=== PATIENT | female | born 1970 | race Caucasian/White ===

== ENCOUNTER → 2017-01-20 | Outpatient (CLI) | payer OTHER ==
[~2017-01-20] MED LIST: THYR15 PO; ZITH250T PO
[2017-01-20 09:43] LABS: ALKALINE PHOSPHATASE 66 U/L (45-117); ALT (GPT) 14 U/L (10-53); ANION GAP 7 MEQ/L (5-15); AST (GOT) 13 U/L (15-37); BICARBONATE 25.2 MEQ/L (21.0-32.0); BLOOD UREA NITROGEN 17 MG/DL (7-18); CHLORIDE 108 MEQ/L (98-107); FREE T3 2.64 PG/ML (2.18-3.98); FREE T4 0.85 NG/DL (0.76-1.46); GLOMERULAR FILTRATION RATE 70 ML/MIN (>89); GLUCOSE,FASTING 121 MG/DL (74-99); HDL CHOLESTEROL 83.1 MG/DL (40.0-60.0); LDL CHOLESTEROL 149 MG/DL (0-99); SODIUM (NA) 140 MEQ/L (136-145); TOTAL BILIRUBIN ADULT 0.4 MG/DL (0.2-1.0)
[2017-01-20 13:41] LABS: RHEUMATOID FACTOR TRIGGER LESS THAN 10.0 IU/ML (0.0-14.9)
[2017-01-20 14:47] LABS: HEMOGLOBIN A1a 0.7 %; HEMOGLOBIN A1b 1.5 %; HEMOGLOBIN Ao 85.4 %; HEMOGLOBIN LA1C 2.2 %; HEMOGLOBIN P3 3.7 %
== END ==
LOC: CLAB 08:16
PROVIDERS: ATTEND Allergy & Immunology
DX: E78.2 Mixed hyperlipidemia (principal); I25.83 Coronary atherosclerosis due to lipid rich plaque; R94.6 Abnormal results of thyroid function studies; M32.19 Other organ or system involvement in systemic lupus erythematosus; E08.65 Diabetes mellitus due to underlying condition with hyperglycemia
CPT/HCPCS: 36415; 80053; 80061; 83036; 83090; 84439; 84443; 84481; 85652; 86038; 86141; 86430

== ENCOUNTER → 2017-06-19 | Outpatient (CLI) | payer OTHER ==
[2017-06-19 08:33] LABS: HEMATOCRIT 38.6 % (35.0-46.0); MEAN CELL VOLUME 91.1 FL (80.0-100.0); MEAN CORPUSCULAR HEMOGLOBIN 31.6 PG (27.0-34.0); MEAN CORPUSCULAR HGB CONC 34.6 % (32.0-36.0); PLATELET COUNT 272 TH/MM3 (150-450); RED BLOOD COUNT 4.24 MIL/MM3 (4.00-5.30); RED CELL DISTRIBUTION WIDTH 12.7 % (11.6-17.2); REVIEW FLAG FINAL; WHITE BLOOD COUNT 4.4 TH/MM3 (4.0-11.0)
[2017-06-19 08:59] LABS: ANION GAP 6 MEQ/L (5-15); AST (GOT) 13 U/L (15-37); BICARBONATE 27.4 MEQ/L (21.0-32.0); BLOOD UREA NITROGEN 12 MG/DL (7-18); CHLORIDE 106 MEQ/L (98-107); GLOMERULAR FILTRATION RATE 75 ML/MIN (>89); GLUCOSE,FASTING 107 MG/DL (74-99); SODIUM (NA) 139 MEQ/L (136-145)
[2017-06-19 09:10] LABS: ALKALINE PHOSPHATASE 78 U/L (45-117); ALT (GPT) 13 U/L (10-53); FREE T4 0.87 NG/DL (0.76-1.46); HDL CHOLESTEROL 77.3 MG/DL (40.0-60.0); LDL CHOLESTEROL 151 MG/DL (0-99); TOTAL BILIRUBIN ADULT 0.3 MG/DL (0.2-1.0)
== END ==
LOC: CLAB 08:06
PROVIDERS: ATTEND Allergy & Immunology
DX: E06.3 Autoimmune thyroiditis (principal); E78.2 Mixed hyperlipidemia; R94.6 Abnormal results of thyroid function studies; M32.19 Other organ or system involvement in systemic lupus erythematosus
CPT/HCPCS: 36415; 80053; 80061; 84439; 84443; 84481; 85027

== ENCOUNTER → 2017-10-24 | Outpatient (CLI) | payer OTHER ==
[2017-10-24 10:30] LABS: ALBUMIN 3.9 GM/DL (3.4-5.0); AST (GOT) 14 U/L (15-37); BICARBONATE 26.8 MEQ/L (21.0-32.0); BLOOD UREA NITROGEN 11 MG/DL (7-18); CHLORIDE 104 MEQ/L (98-107); CREATININE 0.78 MG/DL (0.50-1.00); GLOMERULAR FILTRATION RATE 78 ML/MIN (>89); GLUCOSE,FASTING 105 MG/DL (74-99); SODIUM (NA) 137 MEQ/L (136-145)
[2017-10-24 10:31] LABS: ALT (GPT) 13 U/L (10-53); CHOLESTEROL 256 MG/DL (120-200); TRIGLYCERIDES 105 MG/DL (42-150)
[2017-10-24 10:41] LABS: ALKALINE PHOSPHATASE 77 U/L (45-117); CHOLESTEROL/ HDL RATIO 3.39 RATIO; HDL CHOLESTEROL 75.4 MG/DL (40.0-60.0); LDL CHOLESTEROL 160 MG/DL (0-99); TOTAL BILIRUBIN ADULT 0.5 MG/DL (0.2-1.0); TOTAL PROTEIN 7.2 GM/DL (6.4-8.2)
[2017-10-24 16:42] LABS: HEMOGLOBIN A1C 5.6 % (4.3-6.0)
[2017-10-26 17:53] LABS: CARDIO CRP 0.5 mg/L
== END ==
LOC: CLAB 09:31
PROVIDERS: ATTEND Allergy & Immunology
DX: E78.2 Mixed hyperlipidemia (principal); E08.65 Diabetes mellitus due to underlying condition with hyperglycemia; R94.6 Abnormal results of thyroid function studies
CPT/HCPCS: 36415; 80053; 80061; 83036; 83695; 84443; 86141

== ENCOUNTER → 2018-01-24 | Outpatient (CLI) | payer OTHER ==
[2018-01-24 08:50] LABS: ALBUMIN 3.9 GM/DL (3.4-5.0); AST (GOT) 20 U/L (15-37); BICARBONATE 27.1 MEQ/L (21.0-32.0); BLOOD UREA NITROGEN 14 MG/DL (7-18); CALCIUM 8.9 MG/DL (8.5-10.1); CHLORIDE 107 MEQ/L (98-107); CHOLESTEROL 281 MG/DL (120-200); CREATININE 0.91 MG/DL (0.50-1.00); GLOMERULAR FILTRATION RATE 66 ML/MIN (>89); GLUCOSE,FASTING 102 MG/DL (74-99); SODIUM (NA) 141 MEQ/L (136-145)
[2018-01-24 08:53] LABS: ALKALINE PHOSPHATASE 60 U/L (45-117); ALT (GPT) 15 U/L (10-53); CHOLESTEROL/ HDL RATIO 3.39 RATIO; HDL CHOLESTEROL 82.8 MG/DL (40.0-60.0); LDL CHOLESTEROL 181 MG/DL (0-99); TOTAL BILIRUBIN ADULT 0.4 MG/DL (0.2-1.0); TOTAL PROTEIN 7.2 GM/DL (6.4-8.2); TRIGLYCERIDES 87 MG/DL (42-150)
[2018-01-24 15:35] LABS: HEMOGLOBIN A1C 5.5 % (4.3-6.0)
== END ==
LOC: CLAB 07:57
PROVIDERS: ATTEND Allergy & Immunology
DX: E78.2 Mixed hyperlipidemia (principal); E08.65 Diabetes mellitus due to underlying condition with hyperglycemia
CPT/HCPCS: 36415; 80053; 80061; 83036